=== PATIENT | male | born 1945 | race Caucasian/White ===

== ENCOUNTER 2022-11-25 10:47 | Outpatient (CLI) | payer MEDICARE, SELFPAY ==
--- NOTE | 2022-11-25 11:30 | NEURO_ITS ---
Impression: # Complains of numbness of hands # Severe right Carpal Tunnel Syndrome. 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 # Needle/EMG exam abnormal. Motor Nerve Conduction Upper Extremities Median Nerve Conduction Velocity (m/sec) Terminal Latency (msec) Response Voltage(mV) Elbow-Wrist Wrist Elbow Wrist Right NR NR NR NR Left 57 3.9 3 4 Ulnar Nerve Conduction Velocity (m/sec) Terminal Latency (msec) Response Voltage(mV) Above Elbow Below Elbow Wrist Above Elbow Below Elbow Wrist Right 47 54 2.9 7 7 7 Left 31 56 3.6 .1 1 .6 F-Wave Latency Median (ms) Ulnar (ms) Right NR 32.9 Left 31.8 33.9 Sensory Nerve Conduction Upper Extremities Median Nerve Stimulation Terminal Latency (msec) Wrist/Digit Response Voltage (uV) Wrist Right NR/NR NR/NR Left 4.1/3.8 16/15 Ulnar Nerve Stimulation Terminal Latency (msec) Wrist/Digit Response Voltage (uV) Wrist Right 3.3 28 Left 5.9 22 Radial Nerve Terminal Latency (msec) Response Voltage(mV) Right 2.7 11 Left 2.8 6 Left Right Muscles Examined Fibrillation Fasciculation Scarcity Voltage Duration Left Right Left Right Left Right Left Right Left Right Deltoid Biceps X X Brachioradialis Triceps X X Pronator Teres X X Ext Indicis X X Ext Digitorum X X Abd Poll Brev XX X Reduced Incr >12ms X X 1st Dorsal Interosseus XX X Reduced Incrr >12ms X X Abd Dig Min MTDD
== END 2022-11-25 10:48 | disposition home or self-care (01) ==
DX: R20.2 Paresthesia of skin (principal); G56.01 Carpal tunnel syndrome, right upper limb; G56.22 Lesion of ulnar nerve, left upper limb
CPT/HCPCS: 95886; 95911

== ENCOUNTER 2025-03-14 16:02 | Emergency (ER) | payer MEDICARE, SELFPAY ==
--- NOTE | ~2025-03-14 | XR_ITS ---
3 VIEWS LUMBAR SPINE Ordering provider: Bharati Francisco APRN History: . PAIN RT LOW BACK 3-4 DAYS NO INJURY . Comparison: None. FINDINGS: VERTEBRAL BODIES:Levoscoliosis. No visible fracture or subluxation. Postoperative changes at the lev el of L4-L5. Degenerative changes of the spine. DISK SPACES: Narrowing of the disc spaces L1/L2, L2-L3, L3-L4, and L4-L5. SOFT TISSUES: Vascular calcifications in the aorta. IMPRESSION: No acute osseous abnormality lumbar spine. Multilevel degenerative disc disease. Reviewed, dictated and finalized at location A.
--- NOTE | 2025-03-14 16:04 | ED.BACK ---
HPI - Back Pain/Injury General Chief Complaint: Back Pain/Injury Stated Complaint: BACK PAIN Time Seen by Provider: 03/14/25 16:03 Source: patient Mode of arrival: ambulatory Limitations: no limitations History of Present Illness HPI Narrative: Patient is an 80 year old male who presents to the clinic for back pain. he has a history of chronic back pain. He has a history of a fusion of L4-L5 and radiculopathy. He states that he has been taking Ibuprofen for pain with minimal relief. Denies any injury or strain of back. He is scheduled to see his primary care doctor on . Related Data Home Medications ?Medication ?Instructions ?Recorded ?Confirmed ?Last Taken ?Type acetaminophen 500 mg tablet 1,000 mg PO Q8H PRN Pain 08/29/24 08/31/24 Unknown History atorvastatin 40 mg tablet 40 mg PO HS 08/29/24 08/29/24 Unknown History enoxaparin 60 mg/0.6 mL 60 mg subcut Q24H 08/29/24 08/29/24 Unknown History subcutaneous syringe latanoprost 0.005 % eye drops 1 drp RIGHT EYE HS 08/29/24 08/31/24 Unknown History sertraline 50 mg tablet 100 mg PO DAILY 08/29/24 08/31/24 Unknown History tamsulosin 0.4 mg capsule 0.4 mg PO HS 08/29/24 08/29/24 Unknown History Allergies Allergy/AdvReac Type Severity Reaction Status Date / Time No Known Allergies Allergy Verified 03/14/25 16:18 Review of Systems Review of Systems: CONSTITUTIONAL: Denies body aches, fever, chills EYES: Denies visual changes CARDIOVASCULAR: Denies chest pain, palpitations, or edema. RESPIRATORY: Denies cough or dyspnea. GASTROINTESTINAL: Denies abdominal pain, nausea, vomiting, or diarrhea. SKIN: Denies rash, itching, or wounds. MUSCULOSKELETAL: Reports back pain. NEUROLOGIC: Denies headache, numbness, tingling, or weakness. All systems reviewed & are unremarkable except as noted in HPI and below PMFSH Past Medical History Medical History (Updated 03/14/25 @ 17:11 by Bharati Francisco, VICE PRESIDENT OF COMPLIANCE) JOSE (obstructive sleep apnea) Malaise and fatigue Pyelonephritis, unspecified Acute hypoxemic respiratory failure Hyperlipidemia Benign prostate hyperplasia Depression, major, recurrent Acute pulmonary embolism Surgical History Surgical History Status post bilateral knee replacements Family History Family History Father Colon cancer Social History Social History Smoking packs per day: 1 Smoking cigarettes per day: 20.0 Years smoked: 40 Smoking pack-years: 40.00 Smoking status: Former smoker Tobacco type: cigarettes, pipe and cigars Second hand tobacco smoke exposure: Yes Alcohol intake: former Substance use: former Substance use type: marijuana Do You Feel Safe in your Home?: Yes Lack of Transportation: No Lack of Food: Never True Current Housing: I Have Housing Concerned About Future Housing: No Difficulty Paying Gas/Electric Bills: No Difficulty Paying for Meds: No Currently Unemployed: No Education: High School Diploma/GED Difficulty w/ Childcare or Family Care: No Living arrangements: alone Occupation/Education: retired Gender identity (if verbalized by the patient): Male Sexual Orientation (if Verbalized by the Patient): Straight or Heterosexual Spiritual care concerns: No Agree to blood products: Yes Comments At time of signature, I have reviewed and agree with nursing past medical, surgical, social and family history unless otherwise noted. Please see nursing chart for further information. There is no relevant family history pertinent to the presenting complaint. Exam Narrative: GENERAL: Well-appearing, well-nourished, and in no acute distress. HEAD: Normocephalic, atraumatic. EYES: ?conjunctivae clear NECK: Supple. full ROM CHEST: Speaks in full sentences. No respiratory distress. HEART: Regular rate and rhythm. Normal and equal peripheral pulses. MUSC: ?No Vertebral point tenderness. BLEs with normal strength and sensation, baseline range of motion. Endorses pain with palpation to right lumbar paraspinal. ? No edema or ecchymosis, ?No open wounds, skin tenting, ?or obvious deformity; alignment normal.?Gait steady moderately with a cane. SKIN: Warm, dry, no rash. NEURO: Alert and oriented x3.? Course Course Level of Care: Express Care Visit Vital Signs Vital signs: reviewed MDM - Back Pain/Injury MDM Narrative Medical decision making narrative: Discussed physical exam findings and xray. Steroid given for inflammation. Advised supportive measures and signs/symptoms to go to the ER. Pt is appropriate for outpt treatment and follow up. Differential Diagnosis Differential diagnosis: Likely lumbar radiculopathy, sciatica, strain of lumbar region, renal colic, pyelonephritis and discitis Critical Care Time Critical Care Time Critical Care Time: No Discharge Plan Discharge Clinical Impression: Back pain Qualifiers: Back pain location: low back pain Chronicity: acute Back pain laterality: right Sciatica presence: without sciatica Qualified Code(s): M54.50 - Low back pain, unspecified Patient Disposition: Home Condition: Stable Instructions: Back Pain (ED) Additional Instructions: Take Steroid as prescribed. Avoid lifting. pushing. pulling, or anything that worsens the pain. Walking and other gentle exercising several times a week has been shown to improve back pain; bed rest is not recommended. Take Tylenol Extra Strength 1000mg every 8 hours Over the counter pain cream like icy/hot or biofreeze, or Salon pas/lidocaine 4% patch. You may apply heat or cold to the area as needed. Please keep your appointment with your PCP on . If you experience any worsening pain, swelling, numbness, weakness please go to ER. Contact your doctor or go to the emergency department if you develop problems with bladder or bowel function, weakness or loss of feeling in one or both of your legs, or any other serious concerns. Patient Language: Monegasque Prescriptions: New prednisone 20 mg tablet 40 mg PO ONCE 4 Days Qty: 8 0RF No Action latanoprost 0.005 % Drops 1 drp RIGHT EYE HS atorvastatin 40 mg Tablet 40 mg PO HS acetaminophen 500 mg Tablet 1,000 mg PO Q8H PRN (Reason: Pain) tamsulosin 0.4 mg Capsule 0.4 mg PO HS sertraline 50 mg Tablet 100 mg PO DAILY enoxaparin 60 mg/0.6 mL Syringe 60 mg SUBCUT Q24H folic acid 1 mg Tablet 1 mg PO DAILY 30 Days Qty: 30 0RF cholecalciferol (vitamin D3) 1,250 mcg (50,000 unit) Capsule 1,250 mcg PO WEEKLY 30 Days Qty: 5 0RF Follow-up/Referrals: UNKNOWN,DOCTOR [Non-Staff] - Time of Disposition: 17:12
[2025-03-14 16:10] VITALS: BP 123/97; PULSE 104; RESP 16; TEMP 36.5; O2SAT 98
== END 2025-03-14 17:15 | disposition home or self-care (01) ==
PROVIDERS: Emergency Provider Nurse Practitioner Family
DX: M54.50 Low back pain, unspecified (principal); N40.0 Benign prostatic hyperplasia without lower urinary tract symptoms; E78.5 Hyperlipidemia, unspecified; Z87.891 Personal history of nicotine dependence; Z86.711 Personal history of pulmonary embolism; Z96.653 Presence of artificial knee joint, bilateral; F33.9 Major depressive disorder, recurrent, unspecified
CPT/HCPCS: 72100; 99213; G0463

== ENCOUNTER 2025-08-27 18:28 | Emergency (ER) | payer MEDICARE, SELFPAY ==
[2025-08-27 18:39] VITALS: BP 140/88; PULSE 95; RESP 20; TEMP 36.4; O2SAT 99
--- NOTE | 2025-08-27 18:41 | ED.MALEGU ---
HPI - Male Genitourinary General Chief complaint: Urogenital-Male Stated complaint: UTI Time Seen by Provider: 08/27/25 19:10 Source: patient and RN notes reviewed Mode of arrival: ambulatory Limitations: no limitations History of Present Illness HPI Narrative: 80-year-old male presents with concern for dark colored urine for 2-3 days. He reports urgency but denies frequency, dysuria. Denies abdominal pain, back pain, nausea, vomiting, malaise, body aches, chills, sweats. He denies any history of prostate infection or urinary tract infection. He reports he has ginny FELDER Complaint: other (Dark colored urine) Related Data Home Medications ?Medication ?Instructions ?Recorded ?Confirmed ?Last Taken ?Type atorvastatin 40 mg tablet 40 mg PO HS 08/29/24 08/29/24 Unknown History latanoprost 0.005 % eye drops 1 drp RIGHT EYE HS 08/29/24 08/31/24 Unknown History sertraline 50 mg tablet 100 mg PO DAILY 08/29/24 08/31/24 Unknown History tamsulosin 0.4 mg capsule 0.4 mg PO HS 08/29/24 08/29/24 Unknown History Allergies Allergy/AdvReac Type Severity Reaction Status Date / Time No Known Allergies Allergy Verified 08/27/25 18:44 Review of Systems Review of Systems: CONSTITUTIONAL: Denies malaise, chills, sweats, or fever. CARDIOVASCULAR: Denies chest pain, palpitations, or edema. RESPIRATORY: Denies cough or dyspnea. GASTROINTESTINAL: Denies abdominal pain, nausea, vomiting, diarrhea GENITOURINARY: Reports dark-colored urine and urgency. Denies dysuria, frequency, suprapubic pressure. Denies flank pain or hematuria. SKIN: Denies rash or itching. MUSCULOSKELETAL: Denies back pain or myalgia. All systems reviewed & are unremarkable except as noted in HPI and below PMFSH Past Medical History Medical History (Updated 08/27/25 @ 19:29 by Maribell Chávez APRN) JOSE (obstructive sleep apnea) Malaise and fatigue Pyelonephritis, unspecified Acute hypoxemic respiratory failure Hyperlipidemia Benign prostate hyperplasia Depression, major, recurrent Acute pulmonary embolism Surgical History Surgical History Status post bilateral knee replacements Family History Family History Father Colon cancer Social History Social History Smoking packs per day: 1 Smoking cigarettes per day: 20.0 Years smoked: 40 Smoking pack-years: 40.00 Tobacco type: cigarettes, pipe and cigars Second hand tobacco smoke exposure: Yes Alcohol intake: former Substance use: former Substance use type: marijuana Do You Feel Safe in your Home?: Yes Lack of Transportation: No Lack of Food: Never True Current Housing: I Have Housing Concerned About Future Housing: No Difficulty Paying Gas/Electric Bills: No Difficulty Paying for Meds: No Currently Unemployed: No Education: High School Diploma/GED Difficulty w/ Childcare or Family Care: No Living arrangements: alone Occupation/Education: retired Gender identity (if verbalized by the patient): Male Sexual Orientation (if Verbalized by the Patient): Straight or Heterosexual Spiritual care concerns: No Agree to blood products: Yes Comments At time of signature, agree with nursing past medical, surgical, social and family history. There is no relevant family history pertinent to the presenting complaint Exam Narrative: GENERAL: Well-appearing, well-nourished, and in no acute distress. HEAD: Normocephalic. EYES: PERRLA, conjunctivae clear. NECK: Supple. No lymphadenopathy CHEST: Clear to auscultation. No respiratory distress. HEART: Regular rate and rhythm. ABDOMEN: Soft, nontender upon palpation, nondistended, no palpable or pulsatile masses, no guarding. No CVA tenderness SKIN: Warm, dry, no rash. NEURO: Alert and oriented x3. PSYCH: Normal mood and affect Course Course Emergency Course: Patient is aware of diagnosis, understands and agrees to treatment plan. Anticipatory guidance given. Patient agrees to follow-up as directed and is aware of reasons to seek care at the emergency department. Portions of this record may have been created with voice recognition software Level of Care: Express Care Visit Vital Signs Vital signs: Vital Signs Temperature 97.5 F L 08/27/25 18:39 Pulse Rate 95 08/27/25 18:39 Respiratory Rate 20 08/27/25 18:39 Blood Pressure 140/88 08/27/25 18:39 Pulse Oximetry 99 08/27/25 18:39 Oxygen Delivery Room Air 11/09/25 18:39 Temperature 97.5 F L 08/27/25 18:39 Pulse Rate 95 08/27/25 18:39 Respiratory Rate 20 08/27/25 18:39 Blood Pressure 140/88 08/27/25 18:39 Pulse Oximetry 99 08/27/25 18:39 Oxygen Delivery Room Air 08/27/25 18:39 Reviewed. MDM - Male Genitourinary MDM Narrative Medical decision making narrative: I evaluated this patient in the [facility] care. History is obtained from patient who is an independent historian and physical exam was performed.? Available medical records were reviewed. ? Exam findings and relevant testing show no acute concerns or changes; patient is non-toxic appearing and is in no distress. ? Differential diagnosis and treatment plan were discussed with the patient. Patient agrees with discussion and after shared medical decision making agrees with plan of care. All questions were answered to the patient's satisfaction. Patient is appropriate for outpatient treatment and follow-up. Differential Diagnosis Differential diagnosis: Likely urinary tract infection, urethritis, prostatitis and acute retention of urine Critical Care Time Critical Care Time Critical Care Time: No Discharge Plan Discharge Clinical Impression: Urinary tract infection Patient Disposition: Home Condition: Stable Instructions: Antibiotic Form, Urinary Tract Infection in Older Adults (ED) Additional Instructions: We will send a urine culture to the lab; if the culture identifies an organism that the prescribed antibiotic will not treat, you will receive a phone call from an urgent care staff member and an appropriate antibiotic will be prescribed. -Your symptoms should begin to improve within a day of starting antibiotics. But you should finish all the antibiotic pills you get. Otherwise your infection might come back. -Also recommend: increase water intake. Tylenol/ibuprofen as needed for pain or fever -Follow-up with your primary care provider for urine recheck or seek ER visit if condition worsens with high fever, nausea, vomiting and severe back pain. Patient Language: Greenlandic Prescriptions: New ciprofloxacin HCl 500 mg tablet 500 mg PO Q12H 7 Days Qty: 14 0RF No Action latanoprost 0.005 % Drops 1 drp RIGHT EYE HS atorvastatin 40 mg Tablet 40 mg PO HS tamsulosin 0.4 mg Capsule 0.4 mg PO HS sertraline 50 mg Tablet 100 mg PO DAILY Follow-up/Referrals: PHYSICIAN,MARKETING SYSTEMS ANALYST [Primary Care Provider, Internal Medicine] Time of Disposition: 19:30
[2025-08-27 19:31] LABS: EDUAAPPEAR Cloudy; EDUABILI Negative (Negative); EDUABLOOD 3+ (Negative); EDUACOLOR1 Dark; EDUAGLUCOSE Negative (Negative); EDUAKETONE Negative (Negative); EDUALEUKO 3+ (Negative); EDUANITRATE Positive (Negative); EDUAPH 5.5; EDUAPROTEIN 1+ (Negative); EDUASPGRAVITY 1.020; EDUAUROBILI 0.2
== END 2025-08-27 19:38 | disposition home or self-care (01) ==
PROVIDERS: Emergency Provider Nurse Practitioner
DX: N39.0 Urinary tract infection, site not specified (principal); F17.210 Nicotine dependence, cigarettes, uncomplicated; F17.290 Nicotine dependence, other tobacco product, uncomplicated; E78.5 Hyperlipidemia, unspecified; N40.0 Benign prostatic hyperplasia without lower urinary tract symptoms; F33.9 Major depressive disorder, recurrent, unspecified; Z96.653 Presence of artificial knee joint, bilateral; Z86.711 Personal history of pulmonary embolism
CPT/HCPCS: 81003; 87086; 87186; 99213; G0463